=== PATIENT | female | born 1930 | race Caucasian/White ===

== ENCOUNTER 2018-08-04 14:55 | Emergency (ER) | payer MEDICARE ==
[~2018-08-04] VITALS: Ht 157.5 cm; Wt 72.1 kg
[2018-08-04 15:28] LABS: BASOPHILS % (AUTO) 0.4 % (0.0-2.0); EOSINOPHILS % (AUTO) 0.2 % (0.0-6.0); HEMATOCRIT 41 % (33-45); HEMOGLOBIN 13.5 g/dL (11.5-14.8); LYMPHOCYTES % (AUTO) 20.2 % (20.0-44.0); MEAN CORPUSCULAR HGB CONC 33 g/dl (31.0-36.0); MEAN CORPUSCULAR VOLUME 88 fL (82-100); MONOCYTES # (AUTO) 0.5 /CMM (0.1-1.30); MONOCYTES % (AUTO) 9.7 % (2.0-12.0); NEUTROPHILS # (AUTO) 3.4 /CMM (1.8-8.9); NEUTROPHILS % (AUTO) 69.5 % (43.0-81.0); PLATELET COUNT (AUTO) 172 /CMM (150-450); RED BLOOD CELL COUNT(AUTO) 4.59 MIL/uL (4.0-5.2); WHITE BLOOD COUNT (AUTO) 4.8 K/uL (4.3-11.0)
--- NOTE | 2018-08-04 15:30 | NUR ---
PATIENT CAME TO ERWITH C/O REDDY, ABDIRASHID JAW & EAR PAIN SINCE YESTERDAY. DENIES REDDY, DIZZINESS, N/V, WEAKNESS.
[2018-08-04 15:38] LABS: CALCIUM, SERUM 9.8 mg/dL (8.5-10.1); CARBON DIOXIDE 27 mmol/L (21-32); CHLORIDE 102 mmol/L (98-107); CREATININE 0.8 mg/dL (0.6-1.3); GLUCOSE 96 mg/dL (74-106); POTASSIUM 4.2 mmol/L (3.5-5.1); SODIUM SERUM 137 mmol/L (136-145); UREA NITROGEN, BLOOD 16 mg/dL (7-18)
--- NOTE | 2018-08-04 15:44 | NUR ---
TAKEN TO RADIOLOGY
[2018-08-04] MEDS ORDERED: IBUPROFEN 400 MG TABLET PO ONE (16:30)
[2018-08-04] MEDS ORDERED: IBUPROFEN 400 MG TABLET ONE (16:32)
--- NOTE | 2018-08-04 17:01 | NUR ---
Patient discharged to home in stable condition. Written and verbal after care instructions given. Patient verbalizes understanding of instruction. written prescription given to patient and verbalized understanding. patient arranged for Uber to go home. assisted by security at waiting area to wait for Uber
[2018-08-04 17:03] VITALS: BP 135/64
== END 2018-08-04 17:04 | disposition home or self-care (01) ==
LOC: ER 15:02
DX: M26.623 Arthralgia of bilateral temporomandibular joint (principal); R51 Headache; Z85.3 Personal history of malignant neoplasm of breast; Z98.890 Other specified postprocedural states; Z88.2 Allergy status to sulfonamides; Z90.13 Acquired absence of bilateral breasts and nipples
CPT/HCPCS: 36415; 70450-TC; 70486-TC; 80048-TC; 85025-TC; 85652-TC